=== PATIENT | male | born 1990 | race American Indian/Alaskan Native ===

== ENCOUNTER 2019-01-23 23:20 | Emergency (ER) | payer SELFPAY ==
--- NOTE | 2019-01-24 00:33 | Emergency Department Report ---
ED Male HPI - General Chief complaint: Urogenital-Male Stated complaint: BURNING PAIN/BLOODY URINE Time Seen by Provider: 01/24/19 00:19 Source: patient Mode of arrival: Ambulatory Limitations: No Limitations - History of Present Illness Initial comments: Patient is a 28-year-old -[place] male who presents for dysuria with hematuria times one this morning. Complains of bilateral flank pain 4/10 achy exacerbated by voiding. Patient denies history of renal stones. There is no fever no chills ,no nausea vomiting . patient denies history of hypertension. Pt denies penile discharge, states no concern for STI. MD Complaint: dysuria, other (hematuria) Onset/Timin -: days(s) Location: penis, right flank, left flank Radiation: none Severity: moderate Severity scale (0 -10): 4 Quality: aching Consistency: intermittent Improves with: none Worsens with: urination blood in urine, dysuria. denies: discharge, swelling, mass, rash, urinary retention, fever, nausea/vomiting, incontinence - Related Data Sexually active: Yes Previous Rx's Medication Instructions Recorded Last Taken Type levoFLOXacin [Levaquin TAB] 500 mg PO QDAY 7 Days #7 tablet 01/24/19 Unknown Rx Allergies Allergy/AdvReac Type Severity Reaction Status Date / Time No Known Allergies Allergy Unverified 01/24/19 02:23 ED Review of Systems ROS: Stated complaint: BURNING PAIN/BLOODY URINE Other details as noted in HPI Constitutional: denies: chills, fever Eyes: denies: eye pain, eye discharge, vision change ENT: denies: ear pain, throat pain Respiratory: denies: cough, shortness of breath, wheezing Cardiovascular: denies: chest pain, palpitations Endocrine: no symptoms reported Gastrointestinal: denies: abdominal pain, nausea, vomiting, diarrhea Genitourinary: urgency, dysuria, frequency, hematuria. denies: discharge, testicular pain, testicular mass Musculoskeletal: back pain (bilat flank pain ). denies: joint swelling, arthralgia Skin: denies: rash, lesions Neurological: denies: headache, weakness, paresthesias Psychiatric: denies: anxiety, depression Hematological/Lymphatic: denies: easy bleeding, easy bruising ED Past Medical Hx - Past Medical History Previous Medical History?: No - Surgical History Past Surgical History?: No - Social History Smoking Status: Unknown if ever smoked Substance Use Type: None - Medications Home Medications: Home Medications Medication Instructions Recorded Confirmed Last Taken Type levoFLOXacin [Levaquin TAB] 500 mg PO QDAY 7 Days #7 tablet 01/24/19 Unknown Rx ED Physical Exam - General Limitations: No Limitations General appearance: alert, in no apparent distress - Head Head exam: Present: atraumatic, normocephalic - Eye Eye exam: Present: normal appearance, PERRL, EOMI Pupils: Present: normal accommodation - ENT ENT exam: Present: mucous membranes moist - Neck Neck exam: Present: normal inspection, full ROM - Respiratory Respiratory exam: Present: normal lung sounds bilaterally. Absent: respiratory distress - Cardiovascular Cardiovascular Exam: Present: regular rate, normal rhythm, normal heart sounds. Absent: systolic murmur, diastolic murmur, rubs, gallop - GI/Abdominal GI/Abdominal exam: Present: soft, normal bowel sounds. Absent: distended, tenderness, guarding, rebound, rigid, bruit, hernia - Rectal Rectal exam: Present: deferred - Extremities Exam Extremities exam: Present: normal inspection - Back Exam Back exam: Present: full ROM, tenderness, CVA tenderness (R), CVA tenderness (L). Absent: rash noted - Neurological Exam Neurological exam: Present: alert, oriented X3, CN II-XII intact, normal gait - Psychiatric Psychiatric exam: Present: normal affect, normal mood - Skin Skin exam: Present: warm, dry, intact, normal color. Absent: rash ED Course Vital Signs 01/23/19 01/24/19 01/24/19 23:26 03:11 03:46 Temperature 99.0 F 98.4 F Pulse Rate 109 H 85 Respiratory 118 H 20 18 Rate Blood Pressure 140/100 Blood Pressure 138/97 [Left] O2 Sat by Pulse 95 98 Oximetry ED Medical Decision Making - Lab Data Result diagrams: 01/24/19 00:25 01/24/19 00:25 Labs 01/24/19 01/24/19 01/24/19 00:25 00:25 Unknown WBC 11.5 H RBC 5.68 H Hgb 14.0 Hct 42.4 MCV 75 L MCH 25 L MCHC 33 RDW 14.2 Plt Count 271 Sodium 140 Potassium 3.7 Chloride 101.1 Carbon Dioxide 26 Anion Gap 17 BUN 8 L Creatinine 1.1 Estimated GFR > 60 BUN/Creatinine Ratio 7 Glucose 116 H Calcium 9.1 Urine Color [place] Urine Turbidity Clear Urine pH 5.0 Ur Specific [place] 1.033 H Urine Protein 30 mg/dl Urine Glucose (UA) Neg Urine Ketones Neg Urine Blood Sm Urine Nitrite Neg Urine Bilirubin Neg Urine Urobilinogen 2.0 Ur Leukocyte Esterase Neg Urine WBC (Auto) 2.0 Urine RBC (Auto) 15.0 U Epithel Cells (Auto) 1.0 Urine Mucus 3+ - Radiology Data Radiology results: image reviewed no renal stones Findings [facility] [address] [place] [address] Cat Scan Report Signed Patient: MARSHALL RASMUSSEN MR#: [id number] : 1990 Acct:[id number] Age/Sex: 28 / M ADM Date: 01/23/19 Loc: ED Attending Dr: Ordering Physician: MEGAN RIZVI NP Date of Service: 01/24/19 Procedure(s): CT abdomen pelvis wo con Accession Number(s): [id number] cc: MEGAN RIZVI NP CT abdomen pelvis wo con INDICATION / CLINICAL INFORMATION: flank pain hematuria. TECHNIQUE: All CT scans at this location are performed using CT dose reduction for ALARA by means of automated exposure control. COMPARISON: None available. FINDINGS: No acute disease is seen in either lower lung. ABDOMEN: The gallbladder, liver, spleen and pancreas are normal. No renal masses, urinary calculi or hydronephrosis. Adrenal glands are normal. No mesenteric or intracranial adenopathy. No small bowel distention. Pelvis: Postsurgical changes in the right lower quadrant are consistent with previous appendectomy. No acute colon abnormalities. No bladder stones. The urinary bladder is contracted but otherwise appears unremarkable. 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 No acute osseous abnormality. IMPRESSION: 1. No significant abdominal or pelvic abnormality, no explanation for gross hematuria. Signer Name: John Go MD Signed: 01/24/2019 3:55 AM Workstation Name: [id number] Transcribed By: JACQUES Dictated By: John Go MD Electronically Authenticated By: John Go MD Signed Date/Time: 01/24/19354 DD/ 9 TD/TT: - Medical Decision Making symptoms improved, plan tx for dysuria , hematuria, levaquin 500 mg po daily x 7 days, follow up with urology in 2-3 days. pt verbalized agreement and understanding of same. given referral to urology Dr. Roberson. Critical care attestation.: If time is entered above; I have spent that time in minutes in the direct care of this critically ill patient, excluding procedure time. ED Disposition Clinical Impression: Dysuria Hematuria Qualifiers: Hematuria type: unspecified type Qualified Code(s): R31.9 - Hematuria, unspecified Disposition: TO HOME OR SELFCARE Is pt being admited?: No Does the pt Need Aspirin: No Condition: Stable Instructions: Acute Hematuria (ED), Dysuria (ED) Prescriptions: levoFLOXacin [Levaquin TAB] 500 mg PO QDAY 7 Days #7 tablet Referrals: ROLANDO ROBERSON MD [Staff Physician] - 3-5 Days Forms: Work/School Release Form(ED)
[2019-01-24 01:05] LABS: Hematocrit 42.4 % (35.5-45.6); Mean Corpuscular HGB Conc 33 % (32-34); Mean Corpuscular Volume 75 fl (84-94); Platelet Count 271 K/mm3 (140-440); Red Blood Count 5.68 M/mm3 (3.65-5.03); Red Cell Distribution Width 14.2 % (13.2-15.2)
[2019-01-24 01:24] LABS: BUN/Creatinine Ratio 7; Blood Urea Nitrogen 8 mg/dL (9-20); Calcium 9.1 mg/dL (8.4-10.2); Hemolysis Index 7
[2019-01-24 02:53] LABS: Bilirubin,Urine NEG (Negative); Blood,Urine SM (Negative); Color,Urine Amber (Yellow); Mucus,Urine 3+ /HPF
[2019-01-24] MEDS ORDERED: traMADol 50 MG TAB PO ONE (02:57)
[2019-01-24 03:48] VITALS: BP 138/97
--- NOTE | 2019-01-24 04:00 | Cat Scan Report ---
CT abdomen pelvis wo con INDICATION / CLINICAL INFORMATION: flank pain hematuria. TECHNIQUE: All CT scans at this location are performed using CT dose reduction for ALARA by means of automated e xposure control. COMPARISON: None available. FINDINGS: No acute disease is seen in either lower lung. ABDOMEN: The gallbladder, liver, spleen and pancreas are normal. No renal masses, urinary calculi or hydronephrosis. Adrenal glands are normal. No mesenteric or intracranial adenopathy. No small bowel distention. Pelvis: Postsurgical changes in the right lower quadrant are consistent with previous appendectomy. No acute colon abnormalities. No bladder stones. The urinary bladder is contracted but otherwise appears unremarkable. 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 No acute osseous abnormality. IMPRESSION: 1. No significant abdominal or pelvic abnormality, no explanation for gross hematuria. Signer Name: John Go MD Signed: 01/24/2019 3:55 AM Workstation Name: [id number]
== END 2019-01-24 03:48 | disposition home or self-care (01) ==
LOC: ED 23:20
DX: R31.9 Hematuria, unspecified (principal); R30.0 Dysuria; Z79.899 Other long term (current) drug therapy
CPT/HCPCS: 36415; 74176; 80048; 81001; 85027

== ENCOUNTER 2020-03-16 00:04 | Emergency (ER) | payer SELFPAY ==
[2020-03-16 00:43] VITALS: BP 137/96
[2020-03-16] MEDS ORDERED: IBUPROFEN 800 MG TAB PO ONE (00:55)
--- NOTE | 2020-03-16 00:55 | Emergency Department Report ---
ED Lower Extremity HPI - General Chief Complaint: Extremity Injury, Lower Stated Complaint: RT FOOT INJURY Time Seen by Provider: 03/16/20 00:54 Source: patient Mode of arrival: Wheelchair Limitations: No Limitations - History of Present Illness Initial Comments: Patient is a 29-year-old -[place] male comes to the ER after falling out of his truck bed this afternoon landing on his right foot. He is complaining of lateral right foot pain. He is ambulatory with a limp. Neurovascularly he is intact. He denies any LOC or other injury. The fall was witnessed. Patient denies hitting his head. Vital signs are stable and he is nontoxic on arrival to [facility]. MD Complaint: foot injury -: Sudden, hour(s) Injury: Foot: Right Type of Injury: other Place: home Severity: moderate Improves With: immobilization Worsens With: weight bearing, movement Context: fall - Related Data Previous Rx's Medication Instructions Recorded Last Taken Type Ibuprofen [Motrin] 800 mg PO Q8HR PRN #30 tablet 03/16/20 Unknown Rx Allergies Allergy/AdvReac Type Severity Reaction Status Date / Time No Known Allergies Allergy Unverified 01/24/19 02:23 ED Review of Systems ROS: Stated complaint: RT FOOT INJURY Other details as noted in HPI Comment: All other systems reviewed and negative ED Past Medical Hx - Past Medical History Previous Medical History?: No - Surgical History Past Surgical History?: No - Family History Family history: no significant - Social History Smoking Status: Never Smoker Substance Use Type: None - Medications Home Medications: Home Medications Medication Instructions Recorded Confirmed Last Taken Type Ibuprofen [Motrin] 800 mg PO Q8HR PRN #30 tablet 03/16/20 Unknown Rx ED Physical Exam - General Limitations: No Limitations General appearance: alert, in no apparent distress - Head Head exam: Present: atraumatic, normocephalic - Eye Eye exam: Present: normal appearance - ENT ENT exam: Present: mucous membranes moist - Neck Neck exam: Present: normal inspection - Respiratory Respiratory exam: Present: normal lung sounds bilaterally. Absent: respiratory distress - Cardiovascular Cardiovascular Exam: Present: regular rate, normal rhythm. Absent: systolic murmur, diastolic murmur, rubs, gallop - GI/Abdominal GI/Abdominal exam: Present: soft, normal bowel sounds - Rectal Rectal exam: Present: deferred - Extremities Exam Extremities exam: Present: normal inspection - Expanded Lower Extremity Exam Right Hip exam: Present: abrasion Knee exam: Present: normal inspection Lower Leg exam: Present: normal inspection Ankle exam: Present: tenderness, swelling, ecchymosis Foot/Toe exam: Present: tenderness, swelling, ecchymosis Neuro vascular tendon exam: Present: no vascular compromise - Back Exam Back exam: Present: normal inspection - Neurological Exam Neurological exam: Present: alert, oriented X3 - Psychiatric Psychiatric exam: Present: normal affect, normal mood - Skin Skin exam: Present: warm, dry, intact, normal color. Absent: rash ED Course Vital Signs 03/16/20 00:15 Temperature 98.6 F Pulse Rate 109 H Respiratory 16 Rate Blood Pressure 137/96 O2 Sat by Pulse 96 Oximetry ED Lower Extremity MDM - Radiology Data Radiology results: report reviewed, image reviewed interpreted by me: No fracture No acute process - Medical Decision Making ICE/MOTRIN/ORTHO SHOE AND CRUTCHES FOR PAIN NEUROVASC INTACT X-ray negative for fracture DC HOME WITH DC POC INCLUDING RICE/ORTHO FOLLOW UP IN 48 HOURS. PT VERBALIZES UNDERSTANDING OF DC POC. Vital Signs 03/16/20 00:15 Temperature 98.6 F Pulse Rate 109 H Respiratory 16 Rate Blood Pressure 137/96 O2 Sat by Pulse 96 Oximetry HR ON PROVIDER EXAM 90. - Differential Diagnosis ro fx Critical care attestation.: If time is entered above; I have spent that time in minutes in the direct care of this critically ill patient, excluding procedure time. ED Disposition Clinical Impression: Fall, Contusion, foot Disposition: DC-01 TO HOME OR SELFCARE Is pt being admited?: No Does the pt Need Aspirin: No Condition: Stable Instructions: Foot Contusion, [id number] Additional Instructions: ICE REST ELEVATE FOOT CRUTCHES FOR PAIN/COMFORT MOTRIN OR TYLENOL FOR PAIN FOLLOW UP WITH PCP OR ORTHO MD IN 48 HOURS REFERRALS BELOW Prescriptions: Ibuprofen [Motrin] 800 mg PO Q8HR PRN #30 tablet PRN Reason: Pain, Moderate (4-6) Referrals: SERGEY MEJIAS MD [Staff Physician] - 3-5 Days LORNA GARDNER MD [Staff Physician] - 3-5 Days Time of Disposition: 00:55
--- NOTE | 2020-03-16 01:01 | XRay Report ---
Right foot-2 views INDICATION: injury. Acute generalized forefoot pain after an unspecified injury COMPARISON: None. IMPRESSION: No acute osseous or soft tissue abnormality. No significant DJD. Signer Name: Eb Martino MD Signed: 03/16/2020 12:56 AM Workstation Name: [id number]
== END 2020-03-16 02:10 | disposition home or self-care (01) ==
LOC: ED 00:04
DX: S90.31XA Contusion of right foot, initial encounter (principal); Z79.899 Other long term (current) drug therapy; W06.XXXA Fall from bed, initial encounter; Y93.89 Activity, other specified; Y92.099 Unspecified place in other non-institutional residence as the place of occurrence of the external cause; Y99.8 Other external cause status